=== PATIENT | female | born 1980 | race African-American/Black ===

== ENCOUNTER 2017-06-13 12:53 | Emergency (ER) | payer BC, OTHER ==
[2017-06-13 13:30] VITALS: RESP 16
[2017-06-13] MEDS ORDERED: RX INFO: IV CONTRAST WAS GIVEN 1 EACH MISC MISCELLANE PRN (13:33)
--- NOTE | 2017-06-13 13:46 | ED ---
Chest Pain HPI - General Chief Complaint: Chest Pain Stated Complaint: chest pain Time Seen by Provider: 06/13/17 13:04 Source: patient, family () Mode of arrival: EMS Limitations: no limitations - History of Present Illness Initial Comments: Patient presents with mild chest pain and mild shortness of breath that began at approximately 12 PM today while at work. Patient states she has a history of pulmonary embolism 3 years ago, no longer on anticoagulation. States symptoms feel similar to when she had pulmonary embolism patient is a current smoker. Denies hypertension, high cholesterol, diabetes, personal history of heart disease, family history of early heart disease. Patient states she took aspirin prior to arrival which relieved her chest pain. Patient denies any recent symptoms or illness prior to onset of chest pain today. Patient denies lower extremity pain or swelling. Patient states she was on control in the past however she stopped it after her pulmonary embolism. Complaint: chest pain Onset/Timin -: hour(s) - Related Data Home Medications Medication Instructions Recorded Confirmed Albuterol Inhaler [Ventolin Hfa 1 - 2 puff INHALATION RT-Q6H PRN 06/13/17 Inhaler] Aspirin 325 mg PO ONCE 06/13/17 06/13/17 Allergies Allergy/AdvReac Type Severity Reaction Status Date / Time No Known Allergies Allergy Verified 06/13/17 13:54 Review of Systems ROS Statement: Those systems with pertinent positive or pertinent negative responses have been documented in the HPI. ROS Other: All systems not noted in ROS Statement are negative. Constitutional: Denies: fever, chills, weakness Eyes: Denies: vision change ENT: Denies: congestion Respiratory: Reports: dyspnea. Denies: cough, wheezes, hemoptysis, stridor Cardiovascular: Reports: chest pain. Denies: palpitations, dyspnea on exertion , orthopnea, edema, syncope Endocrine: Reports: fatigue Gastrointestinal: Denies: abdominal pain, nausea, vomiting Genitourinary: Denies: dysuria, frequency, abnormal menses Musculoskeletal: Denies: back pain Skin: Denies: rash Neurological: Denies: headache Past Medical History Past Medical History: Pulmonary Embolus (PE) Additional Past Medical History / Comment(s): ovarian cyst History of Any Multi-Drug Resistant Organisms: None Reported Past Surgical History: No Surgical Hx Reported Past Psychological History: No Psychological Hx Reported Smoking Status: Current every day smoker Past Alcohol Use History: None Reported Past Drug Use History: None Reported General Exam - General Exam Comments Initial Comments: Sitting up in bed. No acute distress. Conversing softly. Well-appearing. Appears mildly fatigued. Limitations: no limitations General appearance: alert, in no apparent distress Head exam: Present: atraumatic, normocephalic Eye exam: Present: normal appearance, PERRL, EOMI ENT exam: Present: mucous membranes moist Neck exam: Present: normal inspection Respiratory exam: Present: normal lung sounds bilaterally. Absent: respiratory distress, wheezes, rales, rhonchi, stridor, accessory muscle use, decreased breath sounds Cardiovascular Exam: Present: regular rate, normal rhythm GI/Abdominal exam: Present: soft. Absent: distended, tenderness Extremities exam: Present: normal capillary refill. Absent: pedal edema, joint swelling, calf tenderness Neurological exam: Present: alert, oriented X3 Psychiatric exam: Present: normal affect, normal mood Skin exam: Present: warm, dry, intact, normal color. Absent: rash Course Vital Signs 06/13/17 06/13/17 13:25 15:21 Temperature 98.9 F Pulse Rate 74 77 Respiratory 16 16 Rate Blood Pressure 133/87 124/78 O2 Sat by Pulse 100 100 Oximetry Chest Pain MDM - MDM Pt has h/o prior PE, no other PERC positive criteria. EKG normal sinus rhythm, rate 71, NO ST or T-wave changes appreciated, NO S1 Q3 T3 appreciated. Troponin negative No significant lab abnormalities Chest x-ray negative CT PE negative Patient updated without results. Given patient's smoking history and chest pain at rest, patient was offered observation for further cardiac monitoring and workup including stress test. Patient declined. Patient agrees to stay for second troponin. Second troponin negative. Patient updated with all results. Patient agrees to follow primary care physician for outpatient stress testing. Referral given. Return to ER for new or worsening symptoms. Patient understands and agrees. Patient chest pain-free and asymptomatic at time of discharge. - MILAGROS Score Age > 65: (0) No 3 or more CAD Risk Factors: (0) No Known CAD with more than 50% Stenosis: (0) No Aspirin use within the Past 7 Days: (1) Yes (After onset of CP today) Elevated Cardiac Markers: (0) No ST Deviation Greater than 0.5mm: (0) No Disposition Clinical Impression: Chest pain Disposition: HOME SELF-CARE Condition: Good Instructions: Chest Pain (ED) Additional Instructions: Follow-up primary care physician discuss outpatient workup for stress test and further cardiac testing. Return to ER for new or worsening symptoms. Referrals: Adam Leigh MD [STAFF PHYSICIAN] - 1-2 days
[2017-06-13 14:23] LABS: Partial Thromboplastin Time 22.8 sec (22.0-30.0); Prothrombin Time 10.2 sec (9.0-12.0)
[2017-06-13 14:26] LABS: Basophils % (A) 0 %; Eosinophils # (A) 0.3 k/uL (0-0.7); Eosinophils % (A) 2 %; HCT 38.3 % (34.0-46.0); HGB 12.1 gm/dL (11.4-16.0); Lymphocytes # (A) 2.3 k/uL (1.0-4.8); Lymphocytes % (A) 16 %; MCH 26.9 pg (25.0-35.0); MCHC 31.5 g/dL (31.0-37.0); MCV 85.5 fL (80.0-100.0); Monocytes # (A) 0.5 k/uL (0-1.0); Monocytes % (A) 3 %; Neutrophils # (A) 11.3 k/uL (1.3-7.7); Neutrophils % (A) 78 %; Platelet Count 223 k/uL (150-450); RBC 4.48 m/uL (3.80-5.40); RDW 13.1 % (11.5-15.5); WBC 14.6 k/uL (3.8-10.6)
[2017-06-13 14:27] LABS: Anion Gap 10 mmol/L; Blood Urea Nitrogen 9 mg/dL (7-17); Calcium 9.2 mg/dL (8.4-10.2); Carbon Dioxide 24 mmol/L (22-30); Chloride 105 mmol/L (98-107); Glucose 96 mg/dL (74-99); Magnesium 1.7 mg/dL (1.6-2.3); Potassium 4.3 mmol/L (3.5-5.1); Sodium 139 mmol/L (137-145)
[2017-06-13 14:32] LABS: Appearance,Urine Clear (Clear); Bilirubin,Urine Negative (Negative); Blood,Urine Moderate (Negative); Color,Urine Light Yellow; Glucose,Urine (UA) Negative (Negative); Ketones,Urine Negative (Negative); Leukocyte Esterase,Urine Negative (Negative); Mucus,Urine Rare /hpf; Nitrite,Urine Negative (Negative); Protein,Urine Negative (Negative); RBC,Urine 1 /hpf (0-5); Specific Gravity,Urine 1.004 (1.001-1.035); Squamous Epithelial Cell,Urine <1 /hpf (0-4); Urobilinogen,Urine <2.0 mg/dL (<2.0); WBC,Urine <1 /hpf (0-5)
--- NOTE | 2017-06-13 14:57 | XR ---
EXAMINATION TYPE: XR chest 2V DATE OF EXAM: 06/13/2017 COMPARISON: 11/06/2014 HISTORY: 36-year-old female with chest pain TECHNIQUE: PA and lateral views FINDINGS: The cardiomediastinal silhouette, aorta, and pulmonary vasculature are within normal limits. Lungs an d pleural spaces are clear. IMPRESSION: No acute cardiopulmonary process.
--- NOTE | 2017-06-13 15:34 | CT ---
CT CHEST FOR PULMONARY EMBOLISM. EXAMINATION TYPE: CT angio chest DATE OF EXAM: 06/13/2017 INDICATION: SOB AND CHEST PAIN CT DLP: 481 mGycm, Automated exposure control for dose reduction was used. CONTRAST: Patient injected with 72 mL of Omnipaque 350. COMPARISON: 11/06/2014 TECHNIQUE: CT of the chest is performed on a spiral scan at 2 mm thick sections. Study is performed with intravenous contrast timed for evaluation for pulmonary embolism. This will limit additional po rtions of the evaluation. 3-D MIP images reconstructed by the technologist are reviewed on the compu ter in the coronal and sagittal planes. FINDINGS: No persistent filling defects are evident to suggest an acute pulmonary embolism. No mediastinal or hilar adenopathy enlarged by CT criteria is evident. The ascending aorta diameter at the level of the main pulmonary artery is 2.9 cm. No dissection is evident. No aneurysmal dilatati on is evident. The main pulmonary artery diameter at the bifurcation is 2.3 cm. Lung windows are clear. Limited CT section through the upper abdomen are unremarkable. IMPRESSIONS: 1. No acute pulmonary embolism.
[2017-06-13 17:40] VITALS: BP 132/82; PULSE 78; TEMP 98
== END 2017-06-13 17:39 | disposition home or self-care (01) ==
LOC: EC 12:53
DX: R07.9 Chest pain, unspecified (principal); F17.200 Nicotine dependence, unspecified, uncomplicated; Z86.711 Personal history of pulmonary embolism; Z79.82 Long term (current) use of aspirin
CPT/HCPCS: 36415; 93005; 80048; 83735; 84484; 85025; 85610; 85730; 81001; 81025; 71046; 71275; 99285; Q9967

== ENCOUNTER 2022-03-10 05:17 | Emergency (ER) | payer OTHER ==
[2022-03-10 05:31] VITALS: BP 178/86; PULSE 84; RESP 18; TEMP 98
--- NOTE | 2022-03-10 05:33 | ED ---
Back Pain HPI - General Chief Complaint: Back Pain/Injury Stated Complaint: Back Pain - [facility] Time Seen by Provider: 03/10/22 05:30 Source: patient, RN notes reviewed, old records reviewed Limitations: no limitations - History of Present Illness Initial Comments: This is a 41-year-old female DF for evaluation of back pain central back pain without significant trauma. No loss of bowel or bladder she was able to amply breathing severe pain patient does believe she may have pulled a muscle while at work MD Complaint: back pain -: hour(s) Similar Symptoms Previously: Yes Place: work Radiation: none Severity: severe Severity scale (1-10): 8 Quality: sharp Consistency: constant Improves With: none Worsens With: movement, walking Context: while lifting Associated Symptoms: denies other symptoms - Related Data Home Medications Medication Instructions Recorded Confirmed Albuterol Inhaler [Ventolin Hfa 1 - 2 puff INHALATION RT-Q6H PRN 06/13/17 06/13/17 Inhaler] Aspirin 325 mg PO ONCE 06/13/17 06/13/17 Allergies Allergy/AdvReac Type Severity Reaction Status Date / Time No Known Allergies Allergy Verified 03/10/22 05:30 Review of Systems ROS Statement: Those systems with pertinent positive or pertinent negative responses have been documented in the HPI. ROS Other: All systems not noted in ROS Statement are negative. Past Medical History Past Medical History: Pulmonary Embolus (PE) Additional Past Medical History / Comment(s): ovarian cyst History of Any Multi-Drug Resistant Organisms: None Reported Past Surgical History: No Surgical Hx Reported Past Psychological History: No Psychological Hx Reported Smoking Status: Never smoker Past Alcohol Use History: None Reported Past Drug Use History: None Reported General Exam General appearance: alert, in no apparent distress Head exam: Present: atraumatic, normocephalic, normal inspection Eye exam: Present: normal appearance, PERRL, EOMI. Absent: scleral icterus, conjunctival injection, periorbital swelling ENT exam: Present: normal exam, mucous membranes moist Neck exam: Present: normal inspection. Absent: tenderness, meningismus, lymphadenopathy Respiratory exam: Present: normal lung sounds bilaterally. Absent: respiratory distress, wheezes, rales, rhonchi, stridor Cardiovascular Exam: Present: regular rate, normal rhythm, normal heart sounds. Absent: systolic murmur, diastolic murmur, rubs, gallop, clicks GI/Abdominal exam: Present: soft, normal bowel sounds. Absent: distended, tenderness, guarding, rebound, rigid Extremities exam: Present: normal inspection, full ROM, normal capillary refill. Absent: tenderness, pedal edema, joint swelling, calf tenderness Back exam: Present: normal inspection Neurological exam: Present: alert, oriented X3, CN II-XII intact Psychiatric exam: Present: normal affect, normal mood Skin exam: Present: warm, dry, intact, normal color. Absent: rash Course Vital Signs 03/10/22 05:29 Temperature 98 F Pulse Rate 84 Respiratory 18 Rate Blood Pressure 178/86 O2 Sat by Pulse 98 Oximetry - Reevaluation(s) Reevaluation #1: 03/10/22 Medical record is reviewed Patient symptoms are improved Patient informed of results and questions answered Medical Decision Making - Medical Decision Making 41 female with acute on chronic back pain x-ray negative back pain is improved patient is able to ambulate will neurological findings and can be discharged home - EKG Data -: EKG Interpreted by Me (EKG shows sinus 79 TX 185 QRS 80 QTC 405) - Radiology Data Radiology results: report reviewed (X-ray lumbar spine is negative for traumatic injury), image reviewed Disposition Clinical Impression: Mid back pain, Mechanical back pain Disposition: HOME SELF-CARE Condition: Good Instructions (If sedation given, give patient instructions): Acute Low Back Pain (ED) Is patient prescribed a controlled substance at d/c from ED?: No Referrals: None,Stated [REFERRING] - 1-2 days Time of Disposition: 06:20
[2022-03-10] MEDS ORDERED: HYDROmorphone 1 MG/ML 1 ML SYRINGE IM STA (05:34)
[2022-03-10] MEDS ORDERED: CYCLOBENZAPRINE 10 MG TAB PO STA (05:34)
[2022-03-10] MEDS ORDERED: ACETAMINOPHEN TAB 500 MG TAB PO STA (05:34)
[2022-03-10] MEDS ORDERED: IBUPROFEN 800 MG TAB PO STA (05:34)
[2022-03-10] MEDS ORDERED: IBUPROFEN 600 MG STARTER PACK 4 TAB BTL PO STA (06:16)
[2022-03-10] MEDS ORDERED: traMADol 50 MG STARTER PACK 3 TAB BTL PO STA (06:16)
--- NOTE | 2022-03-10 06:28 | XR ---
EXAMINATION TYPE: XR lumbar spine 2 or 3V DATE OF EXAM: 03/10/2022 CLINICAL HISTORY: Low back pain. Lifting injury. TECHNIQUE: Frontal and lateral images of the lumbar spine are obtained. COMPARISON: None FINDINGS: There are 5 lumbar type vertebral bodies identified. The lumbar spine shows satisfactory alignment without evidence of acute fracture or dislocation. Vertebral body heights and disk space he ights are within normal limits. Mild anterior spurring lower lumbar levels. The overlying soft tissu e appears unremarkable. IMPRESSION: No acute fracture or dislocation is seen in the lumbar spine.
[2022-03-10] MEDS ORDERED: ETODOLAC 400 MG TAB PO SCH (09:00)
== END 2022-03-10 06:59 | disposition home or self-care (01) ==
LOC: EC 05:17
DX: M54.50 Low back pain, unspecified (principal); I26.99 Other pulmonary embolism without acute cor pulmonale; Z79.82 Long term (current) use of aspirin
CPT/HCPCS: 72100; 99283

== ENCOUNTER 2024-05-30 15:49 | Emergency (ER) | payer BC, OTHER ==
--- NOTE | 2024-05-30 16:53 | ED ---
General Adult HPI - General Source: patient, RN notes reviewed Mode of arrival: ambulatory Limitations: no limitations <Estrellita Sen - Last Filed: 05/30/24 16:49> - General Source: patient, RN notes reviewed, old records reviewed <Guru Narvaez - Last Filed: 05/30/24 21:09> - General Chief complaint: Back Pain/Injury Stated complaint: back and margaret knee pain Time Seen by Provider: 05/30/24 16:49 - History of Present Illness Initial comments: Quick [id number] female presenting for multiple complaints. States she has been having bilateral knee and lower back pain over the past week. States her left knee is bothering her the most. States she has chronic left knee pain however has worsened over the past week. Pain is worse with weightbearing and "feels like there is something inside of her knee". Denies injury or trauma. (Estrellita Sen) Patient is a 43 female. Originally seen as a quick note. Presents with acute on chronic left knee pain. Also has not been having back pain however currently has no back pain. All symptoms are chronic has not followed up with any specialist. Is post be taking meloxicam daily however ran out of it. States she is having left knee pain. At location of the anterior aspect of the knee and worse with standing and certain movements. No obvious injuries. No trauma. Presents for further evaluation at this time. Denies any sensory deficits or weakness. (Guru Narvaez) - Related Data Home Medications Medication Instructions Recorded Confirmed Albuterol Inhaler [Ventolin Hfa 1 - 2 puff INHALATION RT-Q6H PRN 06/13/17 06/13/17 Inhaler] Aspirin 325 mg PO ONCE 06/13/17 06/13/17 Previous Rx's Medication Instructions Recorded Meloxicam [Mobic] 15 mg PO DAILY 14 Days #14 tab 05/30/24 Allergies Allergy/AdvReac Type Severity Reaction Status Date / Time No Known Allergies Allergy Verified 05/30/24 16:02 Review of Systems ROS Other: All systems not noted in ROS Statement are negative. <Estrellita Sen - Last Filed: 05/30/24 16:49> ROS Other: All systems not noted in ROS Statement are negative. <Guru Narvaez - Last Filed: 05/30/24 21:09> ROS Statement: Those systems with pertinent positive or pertinent negative responses have been documented in the HPI. Review of Systems: CONST: Denies fever EYES: Denies blurry vision ENT: Denies nasal congestion C/V: Denies Chest pain RESP: Denies shortness of breath GI: Denies abdominal pain : Denies dysuria SKIN: Denies rash. MSK: Left knee pain NEURO: Denies headache (Guru Narvaez) Past Medical History Past Medical History: Pulmonary Embolus (PE) Additional Past Medical History / Comment(s): ovarian cyst History of Any Multi-Drug Resistant Organisms: None Reported Past Surgical History: No Surgical Hx Reported Additional Past Surgical History / Comment(s): EEK Past Psychological History: No Psychological Hx Reported Smoking Status: Never smoker Past Alcohol Use History: None Reported Past Drug Use History: None Reported <Estrellita Sen - Last Filed: 05/30/24 16:49> General Exam Limitations: no limitations <Estrellita Sen - Last Filed: 05/30/24 16:49> <Guru Narvaez - Last Filed: 05/30/24 21:09> - General Exam Comments Initial Comments: Visual Physical Exam Vital signs reviewed General: Well-appearing, nontoxic, no acute distress. Head: Normocephalic, atraumatic Eyes: PERRLA, EOMI ENT: Airway patent Chest: Nonlabored breathing Skin: No visual rash, normal skin tone Neuro: Alert and oriented 3 Musculoskeletal: No gross abnormalities (Estrellita Sen) General: Appears in no acute distress. HEAD: Normal with no signs of head trauma. EYES: EOMI. ENT: Hearing grossly intact. RESPIRATORY: No respiratory distress. C/V: Regular rate and rhythm. ABD: Abdomen is nondistended. EXT: Anterior left knee pain on palpation. Normal range of motion. No laxity appreciated. Neurovasc intact throughout the left lower extremity. No obvious deformity. SKIN: No rashes or lesions observed on exposed skin. NEURO: Alert and oriented. (Guru Narvaez) Course Vital Signs 05/30/24 05/30/24 15:58 18:11 Temperature 98.8 F 98.6 F Pulse Rate 91 86 Respiratory 16 18 Rate Blood Pressure 169/104 156/90 O2 Sat by Pulse 99 100 Oximetry Medical Decision Making <Estrellita Sen - Last Filed: 05/30/24 16:49> <Brice,Guru - Last Filed: 05/30/24 21:09> - Medical Decision Making I completed the quick note portion of this chart signed Estrellita Sen PA-C (Estrellita Sen) Was pt. sent in by a medical professional or institution (SHIREEN Wynne, [employer], urgent care, hospital, or alf...) When possible be specific @ -No Did you speak to anyone other than the patient for history (EMS, parent, family, police, friend...)? What history was obtained from this source @ -No Did you review nursing and triage notes (agree or disagree)? Why? @ -I reviewed and agree with nursing and triage notes Were old charts reviewed (outside hosp., previous admission, EMS record, old EKG, old radiological studies, urgent care reports/EKG's, alf records)? Report findings @ -No old charts were reviewed Differential Diagnosis (chest pain, altered mental status, abdominal pain women, abdominal pain men, vaginal bleeding, weakness, fever, dyspnea, syncope, headache, dizziness, GI bleed, back pain, seizure, CVA, palpatations, mental health, musculoskeletal)? @ -Differential Musculoskeletal Muscular strain, contusion, ligament sprain, fracture, arthritis, septic arthritis, bursitis, cellulitis, muscle spasm, nerve compression, DVT, arterial occlusion, herpes zoster, electrolyte abnormality, tumor.... This is not meant to be in all inclusive list EKG interpreted by me (3pts min.). @ -None done X-rays interpreted by me (1pt min.). @ -X-ray of the left knee negative for any obvious acute traumatic injury. CT interpreted by me (1pt min.). @ -None done U/S interpreted by me (1pt. min.). @ -None done What testing was considered but not performed or refused? (CT, X-rays, U/S, labs)? Why? @ -None What meds were considered but not given or refused? Why? @ -None Did you discuss the management of the patient with other professionals (professionals i.e. SHIREEN Wynne, [employer]ER, lab, RT, psych nurse, social services manager, corporate lawyer, teacher, navy senior officer, residential case manager)? Give summary @ -No Was smoking cessation discussed for >3mins.? @ -No Was critical care preformed (if so, how long)? @ -No Were there social determinants of health that impacted care today? How? (Homelessness, low income, unemployed, alcoholism, drug addiction, transportation, low edu. Level, literacy, decrease access to med. care, fdc, rehab)? @ -No Was there de-escalation of care discussed even if they declined (Discuss DNR or withdrawal of care, Hospice)? DNR status @ -No What co-morbidities impacted this encounter? (DM, HTN, Smoking, COPD, CAD, Cancer, CVA, ARF, Chemo, Hep., AIDS, mental health diagnosis, sleep apnea, morbid obesity)? @ -None Was patient admitted / discharged? Hospital course, mention meds given and route, prescriptions, significant lab abnormalities, going to OR and other pertinent info. @ -Patient presents with acute on chronic left knee pain. Exam is unremarkable. X-ray returned negative for any obvious acute process. She decli abrahan any analgesia medications other than Tylenol. Discussed with the patient she will be given a knee immobilizer for stability and follow-up with orthopedics. Patient was in agreement this plan. Vital signs are within acceptable limits. I will provide the patient with a prescription for meloxicam. I instructed the patient to follow up with their PCP in the next 1-3 days. I provided contact i nformation for follow up with orthopedics. I explained that the patient should return to the emergency department if they experience any worsening symptoms. Strict return precautions were discussed with the patient. The patient expressed understanding of these instructions. I answered all questions that the patient had. The patient was discharged home in good condition with their prescriptions and follow up information. Undiagnosed new problem with uncertain prognosis? @ -No Drug Therapy requiring intensive monitoring for toxicity (Heparin, Nitro, Insulin, Cardizem)? @ -No Were any procedures done? @ -No Diagnosis/symptom? @ -Left knee sprain Acute, or Chronic, or Acute on Chronic? @ -Acute on chronic Uncomplicated (without systemic symptoms) or Complicated (systemic symptoms)? @ -Uncomplicated Side effects of treatment? @ -No Exacerbation, Progression, or Severe Exacerbation? @ -No Poses a threat to life or bodily function? How? (Chest pain, [place], [place], pneumonia, PE, COPD, DKA, ARF, appy, cholecystitis, CVA, Diverticulitis, Homicidal, Suicidal, threat to staff... and all critical care pts) @ -Unlikely at this time (Guru Narvaez) Disposition <Estrellita Sen - Last Filed: 05/30/24 16:49> Is patient prescribed a controlled substance at d/c from ED?: No Time of Disposition: 17:54 <Guru Narvaez - Last Filed: 05/30/24 21:09> Clinical Impression: Knee pain, Knee sprain Disposition: HOME SELF-CARE Condition: Good Instructions (If sedation given, give patient instructions): Knee Sprain (ED) Prescriptions: Meloxicam [Mobic] 15 mg PO DAILY 14 Days #14 tab Referrals: None,Stated [Primary Care Provider] - 1-2 days Anand Newby DO [Doctor of Osteopathic Medicine] - 1-2 days Forms: [facility] PCPs
--- NOTE | 2024-05-30 17:14 | XR ---
EXAMINATION TYPE: XR knee complete LT DATE OF EXAM: 05/30/2024 5:09 PM INDICATION: Patient age:Female; 43 years old; Reason for study: left knee pain; [facility]. pain COMPARISON: None. TECHNIQUE: The Left knee(s) was examined in Frontal, lateral and oblique projections. FINDINGS: No evidence of any acute osseous pathology, soft tissue swelling, or joint effusion is no mathew. No significant joint space narrowing. Incidental fabella. IMPRESSION: No acute osseous pathology. [facility], , 05/30/2024 5:12 PM
[2024-05-30] MEDS: ACETAMINOPHEN TAB 500 MG TAB PO STA (17:59)
[2024-05-30 18:13] VITALS: BP 156/90; PULSE 86; RESP 18; TEMP 98.6
== END 2024-05-30 18:13 | disposition home or self-care (01) ==
LOC: EC 15:49
DX: S83.92XA Sprain of unspecified site of left knee, initial encounter (principal); X58.XXXA Exposure to other specified factors, initial encounter
CPT/HCPCS: 73562; 99283; L1830